=== PATIENT | female | born 1965 ===

== ENCOUNTER → 2017-12-19 | Outpatient (REF) | payer BC | LOC: ZZPBJ 12:21 | PROVIDERS: ATTEND Orthopaedic Surgery Hand Surgery | DX: Z01.812 Encounter for preprocedural laboratory examination (principal); B96.89 Other specified bacterial agents as the cause of diseases classified elsewhere | CPT/HCPCS: 87070; 87073; 87077; 87186 ==

== ENCOUNTER → 2017-12-20 | Outpatient (REF) | payer BC | LOC: ZZSENDIN 06:22 | PROVIDERS: ATTEND Orthopaedic Surgery Hand Surgery | DX: L72.0 Epidermal cyst (principal) | CPT/HCPCS: 88305 ==